=== PATIENT | male | born 1985 | race Caucasian/White ===

== ENCOUNTER 2016-10-04 21:08 | Emergency (ER) | payer OTHER ==
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
[~2016-10-04 21:08] MED LIST: ACETAMINOPHEN PO; ALBUTEROL17 G1 IH; AUGMENTIN PO; BENZONATATE PO; DEPAKOTE PO; DOXYCYCLINE PO; FLAGYL PO; FLEXERIL10 M1 PO; FLONASE 0.05% N16 G1; IBUPROFEN PO; KETOPROFEN PO; NEURONTIN300 MG PO; PREDNISONE PO; PREDNISONE50 MG PO; SUDAFED PO; SUDAFED30 M1 PO; TESSALON200 MG PO; TORADOL10 MG PO; VICODIN 5/1 TAB 5/50 PO; ZITHROMAX PO; ZOVIRAX800 MG PO
== END 2016-10-04 23:07 | disposition home or self-care (01) ==
LOC: CED 21:08
DX: S20.219A Contusion of unspecified front wall of thorax, initial encounter (principal); F17.200 Nicotine dependence, unspecified, uncomplicated; F31.9 Bipolar disorder, unspecified; Z79.899 Other long term (current) drug therapy; V49.50XA Passenger injured in collision with unspecified motor vehicles in traffic accident, initial encounter; Y92.410 Unspecified street and highway as the place of occurrence of the external cause
CPT/HCPCS: 71020; 99283

== ENCOUNTER 2016-10-31 19:38 | Emergency (ER) | payer OTHER ==
[2016-10-31] MEDS ORDERED: NO MEDICATIONS (19:50)
== END 2016-10-31 21:14 | disposition home or self-care (01) ==
LOC: SED 19:38
DX: S10.91XA Abrasion of unspecified part of neck, initial encounter (principal); F17.210 Nicotine dependence, cigarettes, uncomplicated; Z23 Encounter for immunization
CPT/HCPCS: 90471; 90715; 99283

== ENCOUNTER 2016-12-18 13:53 | Emergency (ER) | payer OTHER ==
[~2016-12-18] VITALS: Ht 180.3 cm; Wt 83.9 kg
--- NOTE | ~2016-12-18 | CR227 ---
[facility] A Service of [facility] RADIOLOGY TEXT RESULTS PATIENT: BRIAN FUNEZ JR LOCATION: [facility] : 85 UNIT #: [id number] AGE: [address]: Terrance Lantigua MD SEX: M ORDER DR: [id number] [facility] [address] [place], [place] [address] [id number] E MR#: [id number] Acc #: [id number] NAME: BRIAN FUNEZ JR : 1985 SEX: M STUDY DATE/TIME: 12/18/2016 14:37 UNIT: [facility] ROOM: STUDY DESCRIPTION: CR Shoulder 1 View Rt Attending Physician: Terrance Lantigua M.D. Ordering Physician: Terrance Lantigua M.D. Primary Care Physician: Tanya Cantor M.D. MEDICAL IMAGING REPORT This report is preliminary unless electronic signature is present EXAM Right shoulder series 12/18/2016 HISTORY Pain, possible dislocation. Happened today. FINDINGS Single AP radiograph of the shoulder is presented. No comparison. Dislocation of the glenohumeral joint. I believe there is anterior inferior dislocation of the humerus relative to glenoid. No fracture is seen but reassessment after joint relocation recommended. Acromioclavicular joint relationship normal. No acute appearing soft tissue abnormality. The visualized ribs and pulmonary parenchyma are unremarkable. Dictated by... Jesus Choe M.D. THIS IS AN ELECTRONICALLY VERIFIED REPORT Jesus Choe M.D. at 12/22/2016 10:42 AM Christine TD: 12/18/2016 18:52 JOB #: [id number] MEDICAL IMAGING REPORT Page 1 of 1 COPY
--- NOTE | ~2016-12-18 | CR230 ---
[facility] A Service of [facility] RADIOLOGY TEXT RESULTS PATIENT: BRIAN FUNEZ JR LOCATION: [facility] : 85 UNIT #: [id number] AGE: [address]: Terrance Lantigua MD SEX: M ORDER DR: [id number] [id number] [facility]. [place], [place] [address] [id number] E MR#: [id number] Acc #: [id number] NAME: BRIAN FUNEZ JR : 1985 SEX: M STUDY DATE/TIME: 12/18/2016 15:35 UNIT: [facility] ROOM: STUDY DESCRIPTION: CR Shoulder Min 2 View Rt Attending Physician: Terrance Lantigua M.D. Ordering Physician: Terrance Lantigua M.D. Primary Care Physician: Tanya Cantor M.D. MEDICAL IMAGING REPORT This report is preliminary unless electronic signature is present EXAM Right shoulder series, 12/18/2016. HISTORY Post-reduction. REPORT AP radiograph of the right shoulder is presented. COMPARISON Earlier on the same date. FINDINGS Relocation of the right glenohumeral joint. The patient is in internal rotation. Alignment normal. No definite fracture. No soft tissue defect, subcutaneous air or radiodense foreign body. The visualized ribs are intact. Periarticular soft tissues are unremarkable. Visualized pulmonary parenchyma clear. Dictated by... Jesus Choe M.D. THIS IS AN ELECTRONICALLY VERIFIED REPORT Jesus Choe M.D. at 12/22/2016 10:43 AM ALEKS/misti TD: 12/18/2016 21:03 JOB #: [id number] MEDICAL IMAGING REPORT [facility] A Service [facility] RADIOLOGY TEXT RESULTS PATIENT: BRIAN FUNEZ JR LOCATION: [facility] : 85 UNIT #: [id number] AGE: [address]: Terrance Lantigua MD SEX: M ORDER DR: Page 1 of 1 COPY
[~2016-12-18 13:53] MED LIST changes: +NO MEDICATIONS
== END 2016-12-18 16:25 | disposition home or self-care (01) ==
LOC: CED 13:53
DX: S43.004A Unspecified dislocation of right shoulder joint, initial encounter (principal); F17.200 Nicotine dependence, unspecified, uncomplicated; W22.8XXA Striking against or struck by other objects, initial encounter; Y92.89 Other specified places as the place of occurrence of the external cause
CPT/HCPCS: 23650; 73020; 96361; 96374; 99283; J2270; J3010

== ENCOUNTER → 2017-01-05 | Outpatient (CLI) | payer OTHER ==
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
== END | disposition home or self-care (01) ==
LOC: CIVR 13:15 → CMRI 15:00
DX: S43.004A Unspecified dislocation of right shoulder joint, initial encounter (principal); M25.511 Pain in right shoulder
CPT/HCPCS: 73040; 73222; A9577; Q9967